=== PATIENT | male | born 1975 | race Two or more races ===

== ENCOUNTER 2025-01-29 00:58 | Emergency (ER) | payer SELFPAY ==
[2025-01-29 01:14] VITALS: BP 160/92; PULSE 120; RESP 18; TEMP 37; O2SAT 95; BMI 39.1
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
== END 2025-01-29 01:35 ==
LOC: SERX 01:38
PROVIDERS: Emergency Provider Emergency Medicine
DX: Z02.89 Encounter for other administrative examinations (principal); Z04.1 Encounter for examination and observation following transport accident
CPT/HCPCS: 99281